=== PATIENT | female | born 1980 | race Caucasian/White ===

== ENCOUNTER 2020-02-19 09:09 | Outpatient (CLI) | payer OTHER, SELFPAY ==
--- NOTE | ~2020-02-19 | CT_ITS ---
EXAMINATION: CT abdomen pelvis w con INDICATION: Right lower quadrant pain TECHNIQUE: Computed tomographic images of the abdomen and pelvis were obtained after the administrati on of 100 cc of Omnipaque 350 intravenous contrast. The dose-length product (DLP) was 719.85 mGy-cm. Automated exposure control and iterative reconstruction technique were employed. COMPARISON: 09/18/2015 FINDINGS: Minimal dependent atelectasis is present in the lung bases. The heart size is normal. The g allbladder is surgically absent. The liver, spleen, pancreas, and adrenal glands are normal. Cysts of the kidneys measure up to No pathologically enlarged abdominal or pelvic lymph nodes are identified. There is no free intraperitoneal gas or evidence of bowel obstruction. The appendix is normal. Surgi alyssa clips are noted in the left adnexa. There is a small amount of fluid in the pelvis and right adne xa, likely physiologic. IMPRESSION: 1. No CT correlate for the patient's symptoms. Reviewed, dictated and finalized at location A.
[2020-02-19 09:32] LABS: Basophils Absolute Auto 0.1 K/mm3 (0.0-0.1); Basophils Percent Auto 0.5 % (0.2-1.2); Eosinophils Absolute Auto 0.1 K/mm3 (0-0.3); Hematocrit 45.4 % (37.0-47.0); Hemoglobin 14.8 g/dL (12.0-15.0); Immature Granulocyte Absolute 0.06 K/mm3 (0.00-0.031); Immature Granulocyte Percent A 0.6 % (0-0.5); Lymphocytes Absolute Auto 3.04 K/mm3 (0.9-3.2); Mean Corpuscular HGB Conc 32.6 g/dl (32-36); Mean Corpuscular Hemoglobin 31.4 pg (26-34); Mean Corpuscular Volume 96.4 fl (80-100); Mean Platelet Volume 9.3 fl (7.4-10.4); Monocytes Absolute Auto 0.6 K/mm3 (0.1-0.6); Monocytes Percent Auto 5.6 % (2.6-8.5); Neutrophils Absolute Auto 6.3 K/mm3 (1.3-6.7); Neutrophils Percent Auto 62.3 % (45.5-73.1); Platelet Count Result 280 k/mm3 (150-375); Red Blood Count 4.71 M/mm3 (4.2-5.4); Red Cell Distribution Width 13.1 % (11.5-14.5); White Blood Count 10.1 K/mm3 (4.5-10.0)
[2020-02-19 09:43] LABS: Blood Urea Nitrogen 10 mg/dL (7-17); Calcium 9.1 mg/dL (8.4-10.2); Carbon Dioxide 27 mmol/L (22-30); Chloride 104 mmol/L (98-107); Estimated Glomerular Filt Rate > 60; Glucose 97 mg/dL (65-105); Sodium 135 mmol/L (137-145)
== END 2020-02-19 09:10 | disposition home or self-care (01) ==
PROVIDERS: PCP Family Medicine; Visit Provider Nurse Practitioner Family
DX: R10.31 Right lower quadrant pain (principal)
CPT/HCPCS: 36415; 74177; 80048; 85025; Q9967

== ENCOUNTER 2020-03-16 12:41 | Outpatient (CLI) | payer OTHER, SELFPAY ==
--- NOTE | ~2020-03-16 | US_ITS ---
EXAMINATION: US pelvic complete w TV DATE: 03/16/2020 14:01 INDICATION: Enlarged uterus, vaginal bleeding, history of right salpingo-oophorectomy TECHNIQUE: Multiple transabdominal and endovaginal sonographic images of the pelvis were obtained. COMPARISON: None. FINDINGS: The uterus measures 8.4 x 4.4 x 5.2 cm. The endometrial complex measures 9 mm. The right ov ivory surgically absent. No right adnexal abnormality is seen. The left ovary measures 1.9 x 1.7 x 1.7 cm. There is normal vascular flow in the left ovary. There is no free fluid in the pelvis. IMPRESSION: 1. No sonographic correlate for the patient's symptoms. Reviewed, dictated and finalized at location A.
--- NOTE | ~2020-03-16 | MM_ITS ---
EXAMINATION: MM screening erendira BI w danilo HISTORY: Screening mammogram TECHNIQUE: Craniocaudal and mediolateral oblique 3-D tomosynthesis images were obtained and synthetic 2-D images were generated. CAD analysis was submitted and interpreted. COMPARISON: No prior mammogram is available for comparison at this institution. BREAST PARENCHYMAL COMPOSITION: There are scattered areas of fibroglandular density. FINDINGS: There is no evidence of suspicious mass, calcification, or architectural distortion to sugg est malignancy in either breast. There has been no suspicious interval change. IMPRESSION: 1. No mammographic evidence of malignancy. 2. Recommend routine screening mammography in one year. BI-RADS Category 1: Negative Reviewed, dictated and finalized at location A.
== END 2020-03-16 12:42 | disposition home or self-care (01) ==
PROVIDERS: PCP Family Medicine; Visit Provider Obstetrics & Gynecology
DX: Z12.31 Encounter for screening mammogram for malignant neoplasm of breast (principal); N85.2 Hypertrophy of uterus
CPT/HCPCS: 76830; 76856; 77063; 77067

== ENCOUNTER 2020-11-03 11:48 | Outpatient (NON) | payer OTHER, SELFPAY ==
[2020-11-03 23:31] LABS: SARS-CoV-2 RNA PCR Negative
== END 2020-11-03 11:49 ==
LOC: ANHCOVIDDT 11:49
PROVIDERS: PCP Family Medicine; Visit Provider Nurse Practitioner Family
DX: R19.7 Diarrhea, unspecified (principal); R09.81 Nasal congestion; Z20.822 Contact with and (suspected) exposure to COVID-19
CPT/HCPCS: C9803; U0003

== ENCOUNTER → 2020-12-08 11:15 | Outpatient (CLI) | payer OTHER, SELFPAY ==
[2020-12-08 14:41] LABS: Influenza Control Positive
[2020-12-08 22:34] LABS: SARS-CoV-2 RNA PCR Negative
== END ==
PROVIDERS: PCP Family Medicine; Visit Provider Nurse Practitioner Family
DX: Z20.822 Contact with and (suspected) exposure to COVID-19 (principal); R68.89 Other general symptoms and signs
CPT/HCPCS: 87804; C9803; U0003; U0005

== ENCOUNTER 2021-04-05 17:15 | Outpatient (RCR) | payer OTHER, SELFPAY ==
--- NOTE | 2021-03-11 11:26 | PTOPEVAL ---
Thank you for referring Becky Singleton to [facility].? The patient is scheduled to be seen for therapy?1 x/week for 8 weeks. Please review, sign, date and return this plan of care LINDA. I agree with and certify that the following plan of care is medically necessary. Referring Physician Date Attending Provider: Sheri Estrada, DESIGN CHIEF Diagnosis left hip pain Onset months Cause unknown Subjective Information She reports limitation with Query Text:As Reported By Patient/ walking or standing act. She Family has increased pain with prolonged sitting or lying to sleep. Unable to sleep on left side. She has deep hip pain with radiating pain into left upper leg when it hurts. She has increased pain with sitting in the car. She has some pain with walking backward. She does not perform a stretching or exercise program. 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 No pain changes with work until she sits. Previous Treatments Previous Treatments For This Problem no Pain Assessment Pain Scale Used Numeric (1 - 10) Self Report Pain Assessment Left Hip(s) Reported Pain Level 0 Pain Description Radiating,Sharp,Shooting Pain Radiation Left Leg Pain Frequency Chronic,Continuous Lowest Pain Intensity 0 Greatest Pain Intensity 9 Cervical and Lumbar ROM Lumbar ROM Lumbar Flexion Active Mid Negrete Query Text:Hands to: Lumbar Comments no pain with trunk motion, limited flex, 100% ext Lower Extremity Range of Motion General Lower Extremity Range of Motion Reason Not Measured WFL/Left,WFL/Right Lower Extremity Muscle Strength Testing General Lower Extremity Strength Gross Lower Extremity Strength decreased trunk stability in standing and sitting task Hip Strength Bilateral Hip Flexion Strength 5 Normal Hip Extension Strength 4 Good Hip Abduction Strength 3 Fair Knee Strength Bilateral Knee Flexion Strength 5 Normal Knee Extension Strength 5 Normal Ankle Strength Bilateral Ankle Dorsiflexion Strength 5 Normal Ankle Plantarflexion Strength 4 Good
--- NOTE | 2021-04-15 12:28 | PCPTNOTE ---
Patient called & cancelled scheduled appointment this date due to scheduling. She will call to reschedule.
--- NOTE | 2021-05-13 12:53 | PCPTNOTE ---
Patient did not show up for scheduled appointment this date. Will DC skilled therapy due to repeated No show/cancelled visits and length of last of therapy visit.
--- NOTE | 2021-05-13 12:53 | PCPTNOTE ---
Admitting Provider: Attending Provider: ARCHANA Swift Patient:Becyk Singleton Date of :1980 Discharge therapy note Patient has not returned for any further treatments since 04/05/2021, therefore she will be discharged at this time. She attended 4 therapy visits with 3 no show/cancelled visits. Patient?s initial visit was on 03/11/2021 10:15. The goals have been not met at this time due to limited therapy visits. Thank you for referring this patient to [facility]. Please review, sign, date and return this discharge summary LINDA. I have been updated about the patient's current status and I agree with discharge from the above service at this time. Referring Physician Date
== END 2021-05-20 14:46 | disposition home or self-care (01) ==
LOC: ANHPT 17:15
PROVIDERS: PCP Family Medicine; Visit Provider Nurse Practitioner Family
DX: M25.552 Pain in left hip (principal)
CPT/HCPCS: 97014; 97110; 97140; 97161; G0283

== ENCOUNTER 2021-04-15 15:09 | Outpatient (CLI) | payer OTHER, SELFPAY ==
--- NOTE | ~2021-04-15 | MM_ITS ---
EXAMINATION: MM screening erendira BI w danilo HISTORY: Screening mammogram, family history of breast cancer in her mother. TECHNIQUE: Craniocaudal and mediolateral oblique 3-D tomosynthesis images were obtained and synthetic 2-D images were generated. CAD analysis was submitted and interpreted. COMPARISON: 03/16/2020 BREAST PARENCHYMAL COMPOSITION: The breasts are almost entirely fatty. FINDINGS: There is no evidence of suspicious mass, calcification, or architectural distortion to sugg est malignancy in either breast. There has been no suspicious interval change. IMPRESSION: 1. No mammographic evidence of malignancy. 2. Recommend routine screening mammography in one year. BI-RADS Category 1: Negative Reviewed, dictated and finalized at location A.
== END 2021-04-15 15:10 | disposition home or self-care (01) ==
LOC: ANHIMG 15:12
PROVIDERS: PCP Family Medicine; Visit Provider Obstetrics & Gynecology
DX: Z12.31 Encounter for screening mammogram for malignant neoplasm of breast (principal)
CPT/HCPCS: 77063; 77067

== ENCOUNTER 2021-05-17 14:39 | Outpatient (CLI) | payer OTHER, SELFPAY ==
--- NOTE | ~2021-05-17 | US_ITS ---
EXAMINATION: US soft tissue UE LT EXAM DATE: 05/17/2021 15:10 INDICATION: M79.642 - Pain in left hand, mass. TECHNIQUE: Multiple grayscale and Doppler images of the dorsal left wrist region were obtained (by a technologist who performed the scan) and subsequently reviewed. There is no prior study for comparis on. FINDINGS: Scanning in the left hand area of concern posteriorly, near the 3rd and 4th metacarpal bases, demonst rates a complex cystic mass which is most likely a ganglion cyst. IMPRESSION: Complex cystic mass likely ganglion cyst. Reviewed, dictated and finalized at location A.
== END 2021-05-17 14:40 | disposition home or self-care (01) ==
PROVIDERS: PCP Family Medicine; Visit Provider Orthopaedic Surgery
DX: M79.642 Pain in left hand (principal)
CPT/HCPCS: 76882

== ENCOUNTER 2021-08-15 08:01 | Outpatient (CLI) | payer OTHER, SELFPAY ==
[2021-08-15 08:14] LABS: Basophils Absolute Auto 0.1 K/mm3 (0.0-0.1); Basophils Percent Auto 0.6 % (0.2-1.2); Eosinophils Absolute Auto 0.1 K/mm3 (0-0.3); Eosinophils Percent Auto 1.4 % (0-4.4); Hemoglobin 14.3 g/dL (12.0-15.0); Immature Granulocyte Absolute 0.04 K/mm3 (0.00-0.031); Immature Granulocyte Percent A 0.5 % (0-0.5); Lymphocytes Absolute Auto 3.26 K/mm3 (0.9-3.2); Lymphocytes Percent Auto 40.1 % (18.3-44.2); Mean Corpuscular HGB Conc 33.3 g/dl (32-36); Mean Corpuscular Volume 99.3 fl (80-100); Monocytes Absolute Auto 0.5 K/mm3 (0.1-0.6); Monocytes Percent Auto 6.5 % (2.6-8.5); Neutrophils Absolute Auto 4.1 K/mm3 (1.3-6.7); Neutrophils Percent Auto 50.9 % (45.5-73.1); Platelet Count Result 268 k/mm3 (150-375); Red Blood Count 4.33 M/mm3 (4.2-5.4); Red Cell Distribution Width 12.8 % (11.5-14.5); White Blood Count 8.1 K/mm3 (4.5-10.0)
--- NOTE | 2021-08-15 08:22 | ECG_ITS ---
Measurements Intervals [place] Rate: 52 P: 55 IL: 184 QRS: 82 QRSD: 97 T: 63 QT: 444 QTc: 416 Interpretive Statements SINUS BRADYCARDIA WITH MARKED SINUS ARRHYTHMIA BASELINE WANDER- I, II, AVR, AVL, AVF BORDERLINE ECG Electronically Signed On 08-15-2021 9:30:04 CDT by Donovan Borrego D.O.
[2021-08-15 08:53] LABS: Alanine Aminotransferase 22 U/L (4-35); Albumin Level 4.6 g/dL (3.5-5.1); Alkaline Phosphatase 55 U/L (38-126); Anion Gap 4 mmol/L (8-16); Aspartate Amino Transferase 23 U/L (14-36); Bilirubin,Total 0.4 mg/dL (0.2-1.3); Blood Urea Nitrogen 17 mg/dL (7-17); Calcium 9.3 mg/dL (8.4-10.2); Carbon Dioxide 29 mmol/L (22-30); Chloride 106 mmol/L (98-107); Cholesterol 160 mg/dL (0-200); Estimated Glomerular Filt Rate > 60; Glucose 99 mg/dL (65-110); HDL Direct 59 mg/dL; Sodium 139 mmol/L (137-145); Triglycerides 128 mg/dL (<150)
[2021-08-15 09:04] LABS: LDL Cholesterol Direct 68 mg/dL
== END 2021-08-15 08:02 | disposition home or self-care (01) ==
PROVIDERS: PCP Family Medicine; Visit Provider Nurse Practitioner Family
DX: Z13.220 Encounter for screening for lipoid disorders (principal); R07.9 Chest pain, unspecified; R00.2 Palpitations; Z13.29 Encounter for screening for other suspected endocrine disorder; K21.9 Gastro-esophageal reflux disease without esophagitis
CPT/HCPCS: 36415; 80053; 80061; 84443; 85025; 93005

== ENCOUNTER 2021-09-06 08:51 | Outpatient (CLI) | payer OTHER, MEDICAID, SELFPAY ==
--- NOTE | 2021-09-06 08:54 | EST_ITS ---
Patient Info Name: Becky Singleton Age: 40 years : 1980 Gender: Female Ht: 64 in Wt: 192 lbs BSA: 2.02 m2 HR: 59 bpm BP: 122 / 93 mmHg Heart Rhythm: Sinus Rhythm Exam Date: 09/06/2021 10:00 AM Exam Location: [facility] Stress Patient Status: Outpatient Admit Date: 09/06/2021 Staff Ordering Physician: Dede Valle NP Attending Provider: Dede Valle NP Exercise Technologist: Glenis Dennison CT Exercise Physician: Donovan Borrego DO Exam Type: CA stress test treadmill Study Info Indications R00.2 - Palpitations R07.9 - Chest pain, unspecified An exercise stress test was performed. Summary 1. 1. Negative Alexis exercise stress test for ischemic ST changes by ECG criteria. 2. 2. Good functional capacity, achieving 10 METs of workload. 3. 3. Appropriate HR response to exercise. 4. 4. Appropriate HR recovery at 1 minute post exercise. 5. 5. No imaging with stress testing. 6. 6. Patient informed of the above results. Protocol: Alexis Stress ECG Details Stage: REST Duration (min): 1 min : 6 sec Speed (mph): 0.0 Grade (%): 0 HR (bpm): 59 SBP (mmHg): 122 DBP (mmHg): 93 METS: --- Stage: STAGE 1 Duration (min): 1 min : 0 sec Speed (mph): 1.7 Grade (%): 10 HR (bpm): 98 SBP (mmHg): 122 DBP (mmHg): 93 METS: --- Stage: STAGE 1 Duration (min): 2 min : 0 sec Speed (mph): 1.7 Grade (%): 10 HR (bpm): 105 SBP (mmHg): 122 DBP (mmHg): 93 METS: --- Stage: STAGE 1 Duration (min): 3 min : 0 sec Speed (mph): 1.7 Grade (%): 10 HR (bpm): 103 SBP (mmHg): 137 DBP (mmHg): 72 METS: --- Stage: STAGE 2 Duration (min): 1 min : 0 sec Speed (mph): 2.5 Grade (%): 12 HR (bpm): 118 SBP (mmHg): 137 DBP (mmHg): 72 METS: --- Stage: STAGE 2 Duration (min): 2 min : 0 sec Speed (mph): 2.5 Grade (%): 12 HR (bpm): 131 SBP (mmHg): 155 DBP (mmHg): 72 METS: --- Stage: STAGE 2 Duration (min): 3 min : 0 sec Speed (mph): 2.5 Grade (%): 12 HR (bpm): 138 SBP (mmHg): 155 DBP (mmHg): 72 METS: --- Stage: STAGE 3 Duration (min): 1 min : 0 sec Speed (mph): 3.4 Grade (%): 14 HR (bpm): 157 SBP (mmHg): 173 DBP (mmHg): 73 METS: --- Stage: STAGE 3 Duration (min): 2 min : 0 sec Speed (mph): 3.4 Grade (%): 14 HR (bpm): 168 SBP (mmHg): 173 DBP (mmHg): 73 METS: --- Stage: STAGE 3 Duration (min): 2 min : 58 sec Speed (mph): 3.4 Grade (%): 14 HR (bpm): 170 SBP (mmHg): 169 DBP (mmHg): 80 METS: --- Stage: RECOVERY Duration (min): 0 min : 1 sec Speed (mph): 1.5 Grade (%): 0 HR (bpm): 170 SBP (mmHg): 169 DBP (mmHg): 80 METS: --- Stage: RECOVERY Duration (min): 1 min : 1 sec Speed (mph): 0.0 Grade (%): 0 HR (bpm): 135 SBP (mmHg): 169 DBP (mmHg): 80 METS: ---
--- NOTE | 2021-09-08 22:10 | WPDHOLTEREM ---
Holter/Event Monitor Holter/Event Monitor Date of procedure: 09/08/21 Holter/Event Procedure: 48 Hr Holter Monitor Diagnosis: Palpitations Indications: 40-year-old female with palpitations Image/Tracing Quality: Good Finding: The patient was monitored for 48 hours. The underlying rhythm was sinus with a minimum heart rate of 42 beats per minute, average heart rate of 78 beats per minute and maximum heart rate 129 beats per minute. No PVCs were seen. There were 109 APCs noted with 3 atrial couplets. No atrial fibrillation, SVT, ventricular tachycardia, pauses or heart block were recorded. No diary was submitted. . Conclusion: 1. Unremarkable 48 hour Holter monitor. 2. Rare APCs and atrial couplets noted 3. No symptoms recorded
== END 2021-09-06 08:52 | disposition home or self-care (01) ==
PROVIDERS: PCP Family Medicine; Visit Provider Nurse Practitioner Family
DX: R07.89 Other chest pain (principal); R00.2 Palpitations
CPT/HCPCS: 93017; 93225; 93226

== ENCOUNTER → 2021-10-20 02:59 | Outpatient (CLI) | payer OTHER, MEDICAID, SELFPAY ==
[2021-10-20 19:47] LABS: SARS-CoV-2 RNA PCR Negative
== END ==
PROVIDERS: PCP Family Medicine; Visit Provider Physician Assistant Medical
DX: R68.89 Other general symptoms and signs (principal); Z20.822 Contact with and (suspected) exposure to COVID-19
CPT/HCPCS: C9803; U0003; U0005

== ENCOUNTER 2022-03-23 22:26 | Emergency (ER) | payer OTHER, MEDICAID, SELFPAY ==
--- NOTE | ~2022-03-23 | CT_ITS ---
EXAMINATION: CT soft tissue neck w con DATE: 03/24/2022 01:19 INDICATION: Right submandibular gland swelling. TECHNIQUE: Computed tomography (CT) of the neck was performed with 75 mL Omnipaque 300 intravenous co ntrast. Automated exposure control and iterative reconstruction technique were employed. The dose-rob gth product was 591.39 mGy-cm. COMPARISON: None FINDINGS: The orbits are normal. There is fat stranding in right lower face adjacent to the mandible and around the right submandibular gland. No sialolith. There is a mildly enlarged high right interna l jugular chain lymph node. There is mild mucosal thickening in the ethmoid sinuses. The mastoid air cells are normal. There are carious lesions of teeth 15, 19, and 30. IMPRESSION: 1. Inflammation in right lower face adjacent to the mandible and around the right submandibular gland . 2. Dental disease. 3. Mildly enlarged right high internal jugular chain lymph node, likely reactive. Reviewed, dictated and finalized at location A. IMPRESSION: 1. Inflammation in right lower face adjacent to the mandible and around the rig ht submandibular gland. 2. Dental disease. 3. Mildly enlarged right high internal jugular chain lymph node, likely reactiv e.
[2022-03-23 22:30] VITALS: BP 154/98; PULSE 100; RESP 18; TEMP 36.8; O2SAT 99
--- NOTE | 2022-03-24 00:45 | ED.DENTAL ---
HPI - Dental/Oral General Chief complaint: Dental/Oral Stated complaint: toothache Time Seen by Provider: 03/23/22 23:19 History of Present Illness HPI Narrative: Patient is a 41-year-old female who presents ER with concerns for dental pain. Reports she has some discomfort in the right side of her mouth under her tongue that goes into her neck and to her ear. No difficulty breathing or swallowing. She has been taking amoxicillin 875 mg for the last 2 days. She previously had dental infection due to a fractured tooth. No fevers or chills or sweats. Unsure if symptoms are worsened by eating or drinking. Related Data Home Medications Medication Instructions Recorded Confirmed acetaminophen 325 mg capsule 325 mg PO Q6H PRN 03/17/21 01/04/22 (Tylenol) ibuprofen 200 mg capsule 200 mg PO Q6H PRN 03/17/21 01/04/22 multivitamin (Daily Multi-Vitamin) 1 tablet PO DAILY 03/17/21 01/04/22 Allergies Allergy/AdvReac Type Severity Reaction Status Date / Time No Known Allergies Allergy Mild Verified 01/04/22 08:16 Review of Systems Review of Systems: All systems reviewed & are unremarkable except as noted in HPI and below Constitutional: Constitutional: Denies chills, Denies fatigue and Denies fever(s) ENT: Denies dysphagia Comments: No dental pain. Swelling under the right tongue and right submandibular swelling. Cardiovascular: Cardiovascular: Denies chest pain, Denies rapid heart rate and Denies radiating jaw, neck or arm pain Respiratory: Respiratory: Denies cough and Denies dyspnea PMFSH Past Medical History Medical History ADD (attention deficit disorder) Alcohol abuse COVID-19 Ganglion, left wrist Left carpal tunnel syndrome Tobacco abuse Surgical History Surgical History History of cholecystectomy Family History Family History Father Neurological complaint Grandparent Family history of coronary artery disease Mother Breast cancer Sibling Blood clot in vein COVID-19 Other Family history of arthritis Family history of malignant neoplasm Social History Social History Tobacco type: cigarettes Second hand tobacco smoke exposure: No Alcohol intake: current Substance use: never Substance use type: does not use 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 HEAD: Normocephalic, atraumatic. EYES: PERRL and EOMI. ENT: Mucous membranes moist. Normal-appearing posterior oropharynx without tonsillar hypertrophy or uvular edema. Uvula is midline. There is some edema to the sublingual or salivary duct without abscess or drainage. Submandibular gland on the right side of the jaw is also swollen and tender. NECK: Supple. CHEST: Clear to auscultation. No respiratory distress. HEART: Regular rate and rhythm. Normal peripheral pulses. EXTREMITIES: Normal range of motion. No edema. NEURO: Alert and oriented x3. PSYCH: Normal mood and affect. Course Vital Signs Vital signs: Vital Signs Temperature 98.2 F 03/23/22 22:30 Pulse Rate 100 03/23/22 22:30 Respiratory Rate 18 03/23/22 22:30 Blood Pressure 154/98 H 03/23/22 22:30 Pulse Oximetry 99 03/23/22 22:30 Oxygen Delivery Room Air 03/23/22 22:30 Temperature 98.2 F 03/23/22 22:30 Pulse Rate 82 03/24/22 02:26 Respiratory Rate 18 03/24/22 02:26 Blood Pressure 128/81 03/24/22 02:26 Pulse Oximetry 98 03/24/22 02:26 Oxygen Delivery Room Air 03/23/22 22:30 MDM - Dental/Oral Imaging Data Radiologist's impression: CT neck: Inflammatory changes at the right submandibular space
[2022-03-24] MEDS: MORPHINE SULFATE (*CRX) 4 MG/ML INJ IV PUSH (02:21)
[2022-03-24 02:26] VITALS: BP 128/81; PULSE 82; RESP 18; O2SAT 98
[2022-03-24 03:16] VITALS: BP 124/75; PULSE 78; RESP 18; O2SAT 99
== END 2022-03-24 03:17 | disposition home or self-care (01) ==
PROVIDERS: Emergency Provider Emergency Medicine; PCP Family Medicine
DX: K04.7 Periapical abscess without sinus (principal)
CPT/HCPCS: 70491; 96365; 96375; 99284; J0131; J2270; Q9967

== ENCOUNTER 2022-06-02 13:53 | Outpatient (CLI) | payer OTHER, MEDICAID, SELFPAY ==
[2022-06-02 14:33] LABS: Hematocrit 41.9 % (37.0-47.0); Hemoglobin 13.6 g/dL (12.0-15.0); Mean Corpuscular HGB Conc 32.5 g/dl (32-36); Mean Corpuscular Hemoglobin 31.2 pg (26-34); Mean Corpuscular Volume 96.1 fl (80-100); Mean Platelet Volume 9.4 fl (7.4-10.4); Platelet Count Result 266 k/mm3 (150-375); Red Blood Count 4.36 M/mm3 (4.2-5.4); White Blood Count 9.8 K/mm3 (4.5-10.0)
[2022-06-02 14:46] LABS: Alanine Aminotransferase 51 U/L (6-35); Albumin Level 4.2 g/dL (3.5-5.1); Alkaline Phosphatase 60 U/L (38-126); Anion Gap 9 mmol/L (8-16); Aspartate Amino Transferase 37 U/L (14-36); Bilirubin,Total 0.4 mg/dL (0.2-1.3); Blood Urea Nitrogen 15 mg/dL (7-17); Calcium 9.1 mg/dL (8.4-10.2); Carbon Dioxide 25 mmol/L (22-30); Chloride 103 mmol/L (98-107); Estimated Glomerular Filt Rate > 60; Glucose 97 mg/dL (65-110); Sodium 137 mmol/L (137-145)
[2022-06-05 13:54] LABS: FSH 74.9 mIU/mL (***)
[2022-06-06 11:52] LABS: Vitamin D 1,25 (OH)2 Total 52 pg/mL (18-72); Vitamin D2 1,25 (OH)2 <8 pg/mL; Vitamin D3 1,25 (OH)2 52 pg/mL
[2022-06-07 12:17] LABS: Testosterone Total 26 ng/dL (2-45)
== END 2022-06-02 13:54 | disposition home or self-care (01) ==
LOC: ANHLAB 13:54
PROVIDERS: PCP Family Medicine; Visit Provider Obstetrics & Gynecology
DX: N92.6 Irregular menstruation, unspecified (principal)
CPT/HCPCS: 36415; 80053; 82607; 82652; 83001; 84403; 85027

== ENCOUNTER 2022-06-08 15:13 | Outpatient (CLI) | payer OTHER, MEDICAID, SELFPAY ==
--- NOTE | ~2022-06-08 | MM_ITS ---
EXAMINATION: MM screening erendira BI w danilo HISTORY: Screening mammogram, family history of breast cancer in her mother. TECHNIQUE: Craniocaudal and mediolateral oblique 3-D tomosynthesis images were obtained and synthetic 2-D images were generated. CAD analysis was submitted and interpreted. COMPARISON: 04/15/2021, 03/16/2020 BREAST PARENCHYMAL COMPOSITION: The breasts are almost entirely fatty. FINDINGS: RIGHT BREAST: There is a low-density mass in the posterior third of the breast in line with the nippl e axis. LEFT BREAST: There is no suspicious mass, calcification, or architectural distortion to suggest malig kavon. There has been no significant interval change. IMPRESSION: 1. Right breast mass. 2. Additional mammographic views and possible breast ultrasound are recommended. BI-RADS Category 0: Incomplete: Needs additional imaging evaluation. Reviewed, dictated and finalized at location A. IMPRESSION: 1. Right breast mass. 2. Additional mammographic views and possible breast ultrasound are recommended . BI-RADS Category 0: Incomplete: Needs additional imaging evaluation.
== END 2022-06-08 15:14 | disposition home or self-care (01) ==
PROVIDERS: PCP Family Medicine; Visit Provider Obstetrics & Gynecology
DX: Z12.31 Encounter for screening mammogram for malignant neoplasm of breast (principal); R92.8 Other abnormal and inconclusive findings on diagnostic imaging of breast
CPT/HCPCS: 77063; 77067

== ENCOUNTER 2022-06-15 13:14 | Outpatient (CLI) | payer OTHER, MEDICAID, SELFPAY ==
--- NOTE | ~2022-06-15 | MMUS_ITS ---
EXAMINATION: MM diagnostic erendira RT w danilo, US breast RT limited HISTORY: Small low-density mass in posterior third of right breast in line with the nipple axis TECHNIQUE: Additional 3-D tomosynthesis images of the right breast were performed and synthetic 2-D i mages were generated. CAD analysis was submitted and interpreted. High resolution targeted central ri t breast ultrasound was performed. COMPARISON: 06/08/2022 bilateral screening mammogram 04/15/2021 bilateral screening mammogram FINDINGS: MAMMOGRAPHIC FINDINGS: There is an approximately 3.7 mm new opacity in the central left breast approximately 5.7 cm deep to the nipple on CC projection, approximately 6.8 cm deep to the nipple on spot ML view.. ULTRASOUND: 12:00 3 cm from nipple: There is a parallel circumscribed 2.7 x 1.5 x 2.9 mm sonolucent area without internal vascularity or posterior shadowing, most likely a benign small cyst IMPRESSION: 1. Probable benign approximately 3 mm cyst in the central right breast 2. 6 month diagnostic right mammogram follow-up is recommended, with ultrasound if required BI-RADS category 3, probably benign findings. Reviewed, dictated and finalized at location A. IMPRESSION: 1. Probable benign approximately 3 mm cyst in the central right breast 2. 6 month diagnostic right mammogram follow-up is recommended, with ultrasound if required BI-RADS category 3, probably benign findings.
== END 2022-06-15 13:15 | disposition home or self-care (01) ==
LOC: ANHIMG 13:16
PROVIDERS: PCP Family Medicine; Visit Provider Obstetrics & Gynecology
DX: N63.10 Unspecified lump in the right breast, unspecified quadrant (principal); R92.8 Other abnormal and inconclusive findings on diagnostic imaging of breast
CPT/HCPCS: 76642; 77061; 77065; G0279

== ENCOUNTER 2022-12-05 13:03 | Outpatient (CLI) | payer OTHER, MEDICAID, SELFPAY ==
--- NOTE | ~2022-12-05 | MMUS_ITS ---
EXAMINATION: MM diagnostic erendira RT w danilo, US breast RT limited HISTORY: Probable benign approximately 3 mm cyst in central right breast was reported on 06/15/2022 Li mikad right breast ultrasound TECHNIQUE: ML, MLO and CC 3-D tomosynthesis images of the right breast were performed and synthetic 2 -D images were generated. CAD analysis was submitted and interpreted. High resolution targeted right 12:00 breast ultrasound was performed. COMPARISON: 06/15/2022 diagnostic right mammogram and limited right breast ultrasound 06/08/2022, 04/15/2021 bilateral screening mammogram examinations BREAST PARENCHYMAL COMPOSITION: The breasts are almost entirely fatty. FINDINGS: MAMMOGRAPHIC FINDINGS: No suspicious mass or architectural distortion, malignant calcification, skin thickening or retractio n or significant new or developing density is detected. ULTRASOUND: No suspicious mass or shadowing, cyst or other significant sonographic finding is noted at 12:00. IMPRESSION: 1. No mammographic evidence of malignancy 2. Routine annual mammographic screening is recommended BI-RADS Category 1: Negative Reviewed, dictated and finalized at location A. [employer] GROUNDSK[employer]PER IMPRESSION: 1. No mammographic evidence of malignancy 2. Routine annual mammographic screening is recommended BI-RADS Category 1: Negative
== END 2022-12-05 13:04 | disposition home or self-care (01) ==
PROVIDERS: PCP Family Medicine; Visit Provider Obstetrics & Gynecology
DX: N60.01 Solitary cyst of right breast (principal)
CPT/HCPCS: 76642; 77061; 77065; G0279

== ENCOUNTER 2023-04-19 11:44 | Emergency (ER) | payer OTHER, MEDICAID, SELFPAY ==
--- NOTE | 2023-04-19 11:46 | ED.EYEPROB ---
HPI - Eye Problem General Chief complaint: Eye Problems Stated complaint: Eye problems Time Seen by Provider: 04/19/23 11:45 Source: patient Mode of arrival: ambulatory Limitations: no limitations History of Present Illness HPI Narrative: Becky is a 42-year-old female patient presenting to the clinic today with complaints of right eye injury. She reports that her boxer stepped on her face this morning and injured her right eye. States she has some bleeding under the cornea, pain, and her eye is watering. Denies any visual changes. Visual acuity obtained Related Data Allergies Allergy/AdvReac Type Severity Reaction Status Date / Time No Known Allergies Allergy Mild Verified 06/02/22 09:52 Review of Systems Review of Systems: Pertinent positives per HPI. Patient denies any fever, chills, rash, headache, visual changes, dizziness, cough, runny nose, sore throat, shortness of breath, chest pain, palpitations, nausea, vomiting, diarrhea, constipation, abdominal pain, or any urinary issues. [facility] Past Medical History Medical History ADD (attention deficit disorder) Alcohol abuse COVID-19 Cyst of right breast Ganglion, left wrist Left carpal tunnel syndrome Screening mammogram, encounter for Tobacco abuse Surgical History Surgical History History of cholecystectomy (~2003) History of exploratory laparotomy (~2003) exploratory lap w/RSO by Harley--rt ovarian mass History of right salpingo-oophorectomy (~2003) History of tubal ligation (05/21/12) unilateral left tubal ligation Family History Family History Father Neurological complaint Grandparent Family history of coronary artery disease Mother Breast cancer metastatic breast cancer which spread to skull/neck/hips/ribs Sibling Blood clot in vein COVID-19 Other Family history of arthritis Family history of malignant neoplasm Social History Social History Smoking packs per day: 0.5 Smoking cigarettes per day: 10.0 Smoking status: Former smoker Tobacco type: cigarettes Second hand tobacco smoke exposure: No Alcohol intake: current Drinks per week: 1 Substance use: never Substance use type: does not use Living arrangements: other Additional living arrangements comments: Occupation/Education: occupation Additional occupation/education comments: [employer] education-[place] [employer] Gender identity (if verbalized by the patient): Female Sexual Orientation (if Verbalized by the Patient): Straight or Heterosexual Comments At the time of my signature, I reviewed and agree with the nursing past medical, surgical, social, and family history. There is no relevant family history pertinent to the patient complaint. Exam Narrative: General: Well-developed, well nourished, in no apparent distress Head: Normocephalic, atraumatic Eyes: Pupils equally round and reactive to light bilaterally, EOM intact, left sclera and conjunctive clear, right sclera injected with subconjunctival hemorrhage to the right upper lateral sclera, watery discharge, lids normal, Wood's lamp exam performed and a small corneal abrasion is noted over the right iris at 11:00. No Shy sign. Ears: TMs intact and clear, ear canals clear, no drainage, grossly hearing normal. Nose: Nares patent, no discharge, no inflammation, no sinus tenderness. Mouth: Oropharynx without lesions or masses, good dentition, MMM. Neck: Supple, trachea midline, no enlargement of anterior or posterior cervical nodes, no thyroid masses or goiter palpable. Cardio: Regular rate and rhythm, s1 and s2 normal, no murmur appreciated. Resp: Clear to auscultation bilaterally anteriorly and post
[2023-04-19 11:55] VITALS: BP 131/71; PULSE 70; RESP 16; TEMP 36.9; O2SAT 99
== END 2023-04-19 12:20 | disposition home or self-care (01) ==
LOC: EXPCOLL 11:49
PROVIDERS: Emergency Provider Nurse Practitioner Family; PCP Family Medicine
DX: S05.01XA Injury of conjunctiva and corneal abrasion without foreign body, right eye, initial encounter (principal); W54.8XXA Other contact with dog, initial encounter; H11.31 Conjunctival hemorrhage, right eye; Z87.891 Personal history of nicotine dependence; Z86.16 Personal history of COVID-19
CPT/HCPCS: 99213; A9270; G0463

== ENCOUNTER 2023-08-25 07:26 | Outpatient (CLI) | payer OTHER, MEDICAID, SELFPAY ==
[2023-08-25 07:51] LABS: Hematocrit 44.3 % (37.0-47.0); Hemoglobin 14.5 g/dL (12.0-15.0); Mean Corpuscular HGB Conc 32.7 g/dl (32-36); Mean Corpuscular Hemoglobin 30.9 pg (26-34); Mean Corpuscular Volume 94.5 fl (80-100); Mean Platelet Volume 9.4 fl (7.4-10.4); Platelet Count Result 295 k/mm3 (150-375); Red Blood Count 4.69 M/mm3 (4.2-5.4); White Blood Count 8.5 K/mm3 (4.5-10.0)
[2023-08-25 08:05] LABS: Alanine Aminotransferase 24 U/L (6-35); Albumin Level 4.3 g/dL (3.5-5.1); Alkaline Phosphatase 62 U/L (38-126); Anion Gap 6 mmol/L (8-16); Aspartate Amino Transferase 23 U/L (14-36); Bilirubin,Total 0.5 mg/dL (0.2-1.3); Blood Urea Nitrogen 19 mg/dL (7-17); Calcium 9.6 mg/dL (8.4-10.2); Carbon Dioxide 25 mmol/L (22-30); Chloride 106 mmol/L (98-107); Cholesterol 179 mg/dL (0-200); Estimated Glomerular Filt Rate > 60; Glucose 100 mg/dL (65-110); HDL Direct 60 mg/dL; Potassium 4.5 mmol/L (3.4-5.0); Sodium 137 mmol/L (137-145); Triglycerides 124 mg/dL (<150)
[2023-08-25 08:16] LABS: LDL Cholesterol Direct 77 mg/dL
[2023-08-28 12:00] LABS: Testosterone Total 23 ng/dL (2-45)
[2023-08-29 06:06] LABS: FSH 98.7 mIU/mL (***); LH 63.5 mIU/mL (***)
[2023-09-01 22:02] LABS: Estrogen 78 pg/mL
== END 2023-08-25 07:27 | disposition home or self-care (01) ==
LOC: ANHLAB 07:28
PROVIDERS: PCP Family Medicine; Visit Provider Nurse Practitioner Family
DX: N92.6 Irregular menstruation, unspecified (principal); R74.8 Abnormal levels of other serum enzymes; Z13.220 Encounter for screening for lipoid disorders; Z13.29 Encounter for screening for other suspected endocrine disorder; Z13.1 Encounter for screening for diabetes mellitus; Z72.0 Tobacco use
CPT/HCPCS: 36415; 80053; 80061; 82672; 83001; 83002; 84403; 84443; 85027

== ENCOUNTER 2023-11-01 13:49 | Outpatient (CLI) | payer OTHER, MEDICAID, SELFPAY ==
--- NOTE | ~2023-11-01 | MM_ITS ---
EXAMINATION: MM screening erendira BI w danilo HISTORY: Screening mammogram, family history of breast cancer in her mother. TECHNIQUE: Craniocaudal and mediolateral oblique 3-D tomosynthesis images were obtained and synthetic 2-D images were generated. CAD analysis was submitted and interpreted. COMPARISON: 12/05/2022, 06/15/2022, 06/08/2022, 04/15/2021 BREAST PARENCHYMAL COMPOSITION: The breasts are almost entirely fatty. FINDINGS: No suspicious mass, calcification, or architectural distortion are identified in either catal[place] ast to suggest malignancy. There has been no suspicious interval change. IMPRESSION: 1. No mammographic evidence of malignancy. 2. Recommend routine screening mammography in one year. BI-RADS Category 1: Negative Reviewed, dictated and finalized at location A. OGRAPHIC COURT REPORTER
== END 2023-11-01 13:50 | disposition home or self-care (01) ==
PROVIDERS: PCP Family Medicine; Visit Provider Student in an Organized Health Care Education/Training Program
DX: Z12.31 Encounter for screening mammogram for malignant neoplasm of breast (principal)
CPT/HCPCS: 77063; 77067

== ENCOUNTER 2024-01-16 13:46 | Outpatient (CLI) | payer OTHER, BC, SELFPAY ==
--- NOTE | ~2024-01-16 | US_ITS ---
EXAMINATION: US pelvic complete w TV DATE: 01/16/2024 15:06 INDICATION: Abnormal uterine bleeding, history of right oophorectomy TECHNIQUE: Multiple transabdominal and endovaginal sonographic images of the pelvis were obtained. COMPARISON: 03/16/2020 FINDINGS: The uterus measures 6.8 x 3.6 x 3.9 cm. The endometrial complex measures 3 mm. The right ov ivory is surgically absent per patient history. The left ovary measures 1.5 x 1.3 x 0.7 cm. There is no rmal vascular flow in the left ovary. There is no free fluid in the pelvis. IMPRESSION: 1. No sonographic correlate for the patient's symptoms. Reviewed, dictated and finalized at location F.
== END 2024-01-16 13:47 | disposition home or self-care (01) ==
LOC: ANHIMG 13:50
PROVIDERS: PCP Family Medicine; Visit Provider Student in an Organized Health Care Education/Training Program
DX: N93.9 Abnormal uterine and vaginal bleeding, unspecified (principal)
CPT/HCPCS: 76830; 76856

== ENCOUNTER 2025-05-07 21:15 | Emergency (ER) | payer OTHER, SELFPAY ==
--- NOTE | ~2025-05-07 | XR_ITS ---
XR chest 2V Ordering provider: Syed Tom MD History: 44 years Female with . CHEST AND BACK PAIN . Comparison: August 31, 2011 FINDINGS: MEDIASTINUM: The cardiac silhouette is not enlarged. LUNGS: No infiltrates, effusions or pneumothorax. OTHER: No free air under the diaphragm. IMPRESSION: No acute cardiopulmonary pathology. Reviewed, dictated and finalized at location A.
--- NOTE | 2025-05-07 21:17 | ECG_ITS ---
Test Date: 2025-05-07 21:22:46 Measurements Intervals [place] Rate: 93 P: 26 CA: 182 QRS: 46 QRSD: 105 T: 13 QT: 362 QTc: 451 Interpretive Statements SINUS RHYTHM POSSIBLE INFERIOR MYOCARDIAL INFARCTION , PROBABLY OLD [30 ms Q WAVE IN II/aVF] No previous ECG available for comparison Electronically Signed On 05-08-2025 07:08:21 CDT by Anatoly Caballero M.D.
--- OUTSIDE RECORDS SUMMARY | 2025-05-07 21:17 | XMS_ITS | Referral Summary ---
Author Organization [facility] Address [address] [place] [id number] Care Team Providers Care Prec[employer] Captain Name Role Phone Tevin Richards MD Unavailable [phone] Senia Garcia MD Unavailable [phone] Jarad Perez MD Primary Care Provider [phone] Allergies No known active allergies Medications No known medications Active Problems No known active problems Social History Tobacco Use Types Packs/Day Years Used Date Smoking Tobacco: Every Day Cigarettes Tobacco Cessation:Ready to Q uit: Not Asked; Counseling Given: Not Answered AUDIT-C Answer Date Recorded Frequency of Alcohol Consumption Not on file 10/17/2023 Q2: How many drinks containi ng alcohol do you have on a typical day when you are drinking? 1 or 2 10/17/2023 Q3: How often do you have si x or more drinks on one occasion? Less than monthly 10/17/2023 Comments No Sex and Gender Information Value Date Recorded Sex Assigned at Not on file Legal Sex Female 7:59 AM CLIENT CARE SPECIALIST Gender Identity Not on file Sexual Orientation Not on file Last Filed Vital Signs Vital Sign Reading Time Taken Comments Blood Pressure 146/84 05/26/2024 12:10 PM CDT Pulse 72 05/26/2024 12:10 PM CDT Temperature 37.1 C (98.7 F) 05/26/2024 12:10 PM CDT Respiratory Rate 18 10/17/2023 1:01 PM CLIENT CARE SPECIALIST Oxygen Saturation 99% 05/26/2024 12:10 PM CDT Inhaled Oxygen Concentration - - Weight 104.3 kg (230 lb) 05/26/2024 12:10 PM CDT Height 162.6 cm (5' 4) 05/26/2024 12:10 PM CDT Body Mass Index 39.48 05/26/2024 12:10 PM CDT Plan of Treatment Not on file Procedures Procedure Name Priority Date/Time Associated Diagnosis Comments SCREENING MAMMOGRAM BILATERAL W CHAPIN Schedule Routine, Read Routine (OP Routine) 12/02/2024 4:11 PM CLIENT CARE SPECIALIST Screening mammogram, encounter for from Last 3 Months or Most Recently Relevant to Health Maintenance Results * Screening Mammogram Bilateral W Chapin (12/02/2024 4:11 PM CLIENT CARE SPECIALIST) Anatomical Region Laterality Modality Breast Bilateral Mammography Impressions 12/05/2024 12:59 PM CLIENT CARE SPECIALIST BI-RADS ATLAS category (overall): 1 - Negative There is no mammographic evidence of malignancy. A 1 year screening mammogram is recommended. The patient has been or will be contacted. We recommend annual screening mammography for women at average risk of breast cancer beginning at age 40, based on guidelines of the [employer] [employer] (ACR Practice Parameter for the Performance of Screening and Diagnostic Mammography) and [place] [employer]. For women with and elevated risk of breast cancer, please refer to the ACR Practice Parameter for specific screening recommendations. The patient will be entered into a reminder system with a target due date of 1 year for her next screening exam. Narrative 12/05/2024 12:59 PM CLIENT CARE SPECIALIST Screening Mammogram Bilateral W Chapin: 12/02/24 The study was acquired using full field digital technology and interpreted from soft copy. 2D digital mammographic views, as well as 3D digital tomosynthesis were performed in the CC and MLO projections. This study was resulted using Computer-Aided Detection (CAD). CLINICAL: Screening mammogram, encounter for. No relevant medical history has been documented for this patient. History of breast cancer in Mother. COMPARISONS: 11/01/2023 Breast Imaging Screening Outside Reference 12/05/2022 Breast Imaging US Outside Reference 12/05/2022 Breast Imaging Diagnostic Outside Reference 06/15/2022 Breast Imaging US Outside Reference 06/15/2022 Breast Imaging Diagnostic Outside Reference 06/08/2022 Breast Imaging Screening Outside Reference 04/15/2021 Breast Imaging Screening Outside Reference 03/16/2020 Breast Imaging Screening Outside Reference BREAST TISSUE: The breasts are almost entirely fatty. FINDINGS: No suspicious masses, suspicious calcifications, or other suspicious findings are seen within either breast. There has been no suspicious change. us Self Screening Mammogram IMG MAMMO PROCEDURES Fi nal Result from Last 3 Months or Most Recently Relevant to Health Maintenance Insurance [facility] Care Teams Precinct Police Captain Relationship Specialty Start Date End Date Jarad Perez MD [address] [place] [address] PCP - General Family Medicine 10/17/23 Tevin Richards MD [address] [place] [address] Consulting Physician Obstetrics and Gynecology 08/30/23 JoseSenia allen MD [address] [place] [address] Surgeon Breast Surgery 08/30/23
--- OUTSIDE RECORDS SUMMARY | 2025-05-07 21:17 | XMS_ITS | Clinical Summary ---
Author Organization [facility] Address [address] [place] [id number] Care Team Providers Care Transition Advisor Name Role Phone Tevin Richards MD Unavailable [phone] MysticSenia allen MD Unavailable [phone] Jarad Perez MD Primary Care Provider [phone] Allergies No known active allergies Medications No known medications Active Problems No known active problems Surgical History Surgery Date Site/Laterality Comments CHOLECYSTECTOMY 10/29/2003 - 11/28/2003 OOPHORECTOMY 10/29/2003 - 11/28/2003 Right TUBAL LIGATION 05/29/2012 - 06/28/2012 TUBAL LIGATION fallopian tube removal 10/2003 Medical History Medical History Date Comments Anxiety Bronchitis Depression Family History Medical History Relation Name Comments Heart attack Maternal Grandmother Breast cancer Mother 3 times Relation Name Status Comments Maternal Grandmother Mother Social History Tobacco Use Types Packs/Day Years [...] on file Legal Sex Female 7:59 AM VP SCIENTIFIC Gender Identity Not on file Sexual Orientation Not on file Obstetrics History Para Term AB IAB SAB Ectopic Multiple Livin g Live Births 3 3 3 Date Outcome GA Total Labor Labor/2nd/3rd Weight Sex Type Anes PTL Shereen A1 A5 Name Clin Term Term Term Last Filed Vital Signs Vital Sign Reading Time Taken Comments Blood Pressure 146/84 05/26/2024 12:10 PM CDT Pulse 72 05/26/2024 12:10 PM CDT Temperature 37.1 C (98.7 F) 05/26/2024 12:10 PM CDT Respiratory Rate 18 10/17/2023 1:01 PM VP SCIENTIFIC Oxygen Saturation 99% 05/26/2024 12:10 PM CDT Inhaled Oxygen Concentration - - Weight 104.3 kg (230 lb) 05/26/2024 12:10 PM CDT Height 162.6 cm (5' 4) 05/26/2024 12:10 PM CDT Body Mass Index 39.48 05/26/2024 12:10 PM CDT Plan of Treatment Health Maintenance Due Date Last Done Comments Cervical Cancer Screening 1980 Depression Screening 1980 Hepatitis C Screening 1980 DTaP/Tdap/Td Vaccine (1 - Tdap) 01/01/1992 Varicella Vaccines (1 of 2 - 13+ 2-dose series) 1993 Hepatitis B Screening 1998 Regular Well Visit/Exam 18-64 1998 Pneumococcal vaccine <65 (1 of 2 - PCV) 01/01/2000 Covid-19 Vaccine ( - 2023-2 5 season) 2024 08/03/2021, 07/06/2021 Influenza Vaccine (#1) 2025 Breast Cancer Screening-Mammogram 12/02/2025 12/02/2024 HPV Vaccines Aged Out No longer eligi ble based on patient's age to complete this topic Procedures Procedure Name Priority Date/Time Associated Diagnosis Comments SCREENING MAMMOGRAM BILATERAL W CHAPIN Schedule Routine, Read Routine (OP Routine) 12/02/2024 4:11 PM VP SCIENTIFIC Screening mammogram, encounter for from Last 3 Months or Most Recently Relevant to Health Maintenance Results * Screening Mammogram Bilateral W Chapin (12/02/2024 4:11 PM VP SCIENTIFIC) Anatomical Region Laterality Modality Breast Bilateral Mammography Impressions 12/05/2024 12:59 PM VP SCIENTIFIC BI-RADS ATLAS category (overall): 1 - Negative There is no mammographic evidence of malignancy. A 1 year screening mammogram is recommended. The patient has been or will be contacted. We recommend annual screening mammography for women at average risk of breast cancer beginning at age 40, based on guidelines of the [place] [employer] (ACR Practice Parameter for the Performance of Screening and Diagnostic Mammography) and [place] [employer]. For women with and elevated risk of breast cancer, please refer to the ACR Practice Parameter for specific screening recommendations. The patient will be entered into a reminder system with a target due date of 1 year for her next screening exam. Narrative 12/05/2024 12:59 PM VP SCIENTIFIC Screening Mammogram Bilateral W Chapin: 12/02/24 The [...] Most Recently Relevant to Health Maintenance Insurance [employer] [facility] Care Teams Transition Advisor Relationship Specialty Start Date End Date Jarad Perez MD [address] [place] [address] PCP - General Family Medicine 10/17/23 Tevin Richards MD [address] [place] [address] Consulting Physician Obstetrics and Gynecology 08/30/23 Senia Garcia MD [address] [place] [address] Surgeon Breast Surgery 08/30/23
[2025-05-07 21:38] LABS: Hematocrit 41.0 % (37.0-47.0); Hemoglobin 13.7 g/dL (12.0-15.0); Immature Granulocyte Percent A 0.7 % (0-0.5); Lymphocytes Absolute Auto 4.35 K/mm3 (0.9-3.2); Mean Corpuscular HGB Conc 33.4 g/dl (32-36); Mean Corpuscular Hemoglobin 31.1 pg (26-34); Mean Corpuscular Volume 93.0 fl (80-100); Nucleated Red Blood Cells Absolute Auto 0.000 K/mm3 (0.0-0.012); Nucleated Red Blood Cells Perc 0.0 % (0.0-0.2); Platelet Count Result 261 k/mm3 (150-375); Red Blood Count 4.41 M/mm3 (4.2-5.4); White Blood Count 10.3 K/mm3 (4.5-10.0)
[2025-05-07 21:49] LABS: INR 1.0; Prothrombin Time 12.9 Seconds (11.1-14.7)
[2025-05-07 21:50] LABS: Partial Thromboplastin Time 23.4 Seconds (22.3-36.8)
[2025-05-07 22:04] LABS: Alanine Aminotransferase 56 U/L (6-35); Albumin Level 4.4 g/dL (3.5-5.1); Alkaline Phosphatase 58 U/L (38-126); Anion Gap 11 mmol/L (4-12); Aspartate Amino Transferase 87 U/L (14-36); Bilirubin,Total 0.2 mg/dL (0.2-1.3); Blood Urea Nitrogen 14 mg/dL (7-17); Calcium 9.0 mg/dL (8.4-10.2); Carbon Dioxide 21 mmol/L (22-30); Chloride 108 mmol/L (98-107); Estimated Glomerular Filt Rate > 60; Glucose 108 mg/dL (65-110); Lipase 879 U/L (23-300); Potassium 3.4 mmol/L (3.4-5.0); Sodium 140 mmol/L (137-145); Total Protein 7.4 g/dL (6.3-8.2)
[2025-05-07 22:11] LABS: Troponin I < 0.012 ng/mL (0.000-0.034)
[2025-05-07 22:13] VITALS: BP 116/80; PULSE 92; RESP 18; TEMP 36.2; O2SAT 98
--- NOTE | 2025-05-07 22:21 | ED.CHESTPAIN ---
HPI - Chest Pain General Chief Complaint: Chest Pain <Fiona Chen PA-C - Last Filed: 05/08/25 02:12> Stated Complaint: CHEST AND BACK PAIN <Fiona Chen PA-C - Last Filed: 05/08/25 02:12> Time Seen by Provider: 05/07/25 22:22 <Fiona Chen PA-C - Last Filed: 05/08/25 02:12> Focused HPI: This is a 44 year old female that presents to the ER for chest pain/back pain. Ongoing over the last couple of hours. Reports it feels similar to when her gallbladder was acting up. Reports her stomach has been bothering her the last couple of weeks. Reports she had received a stressful phone call before the pain started. GENERAL: Well-appearing, well-nourished, and in no acute distress. HEAD: Normocephalic, atraumatic. CHEST: Clear to auscultation. ?No respiratory distress. HEART: Regular rate and rhythm.? NEURO: ?Alert and oriented x3. Patient screened in triage and initial orders placed.? ?Additional care and disposition to be based upon?diagnostic testing and treatment. <Fiona Chen PA-C - Last Filed: 05/08/25 02:12> Focused HPI: This is a 44 year old female that presents to the ER for chest pain/back pain. Ongoing over the last couple of hours. Reports it feels similar to when her gallbladder was acting up. Reports her stomach has been bothering her the last couple of weeks. Reports she had received a stressful phone call before the pain started. GENERAL: Well-appearing, well-nourished, and in no acute distress. HEAD: Normocephalic, atraumatic. CHEST: Clear to auscultation. ?No respiratory distress. HEART: Regular rate and rhythm.? NEURO: ?Alert and oriented x3. Patient screened in triage and initial orders placed.? ?Additional care and disposition to be based upon?diagnostic testing and treatment. Agree with triage assessment although patient denied any abdominal pain or discomfort for me at this time. States that the pain started shortly after she got off the phone and had a very stressful phone call. She also complains of history of severe anxiety. <Parmjit Ozuna MD - Last Filed: 05/08/25 01:24> Related Data Allergies/Adverse Reactions: Allergies Allergy/AdvReac Type Severity Reaction Status Date / Time No Known Allergies Allergy Mild Verified 05/07/25 22:16 <Fiona Chen PA-C - Last Filed: 05/08/25 02:12> Review of Systems Review of Systems: All systems are reviewed and are negative unless stated otherwise in the HPI. <Parmjit Ozuna MD - Last Filed: 05/08/25 01:24> PMFSH Past Medical History Medical History: Medical History Cyst of right breast Screening mammogram, encounter for COVID-19 Ganglion, left wrist Tobacco abuse ADD (attention deficit disorder) Alcohol abuse Left carpal tunnel syndrome <Fiona Chen PA-C - Last Filed: 05/08/25 02:12> Surgical History Surgical History: Surgical History History of tubal ligation (05/21/12) unilateral left tubal ligation History of right salpingo-oophorectomy (~2003) History of exploratory laparotomy (~2003) exploratory lap w/RSO by Harley--rt ovarian mass History of cholecystectomy (~2003) <Fiona Chen PA-C - Last Filed: 05/08/25 02:12> Family History Family History: Family History Father Neurological complaint Grandparent Family history of coronary artery disease Mother Breast cancer metastatic breast cancer which spread to skull/neck/hips/ribs Sibling Blood clot in vein COVID-19 Other Family history of arthritis Family history of malignant neoplasm <Fiona Chen PA-C - Last Filed: 05/08/25 02:12> Social History Social History: Social History Smoking packs per day: 0.5 Smoking cigarettes per day: 10.0 Smoking status: Current every day smoker (.5 ppd) Tobacco type: cigarettes Second hand tobacco smoke exposure: No Alcohol intake: current Drinks per week: 1 Substance use: never Substance use type: does not use Lack of Transportation: No Lack of Food: Never True Current Housing: I Have Housing Concerned About Future Housing: No Difficulty Paying Gas/Electric Bills: No Difficulty Paying for Meds: No Currently Unemployed: No Education: Bachelor's Degree Difficulty w/ Childcare or Family Care: No Living arrangements: other Additional living arrangements comments: Occupation/Education: occupation 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 HEENT: PERRL, no rhinorrhea, no post nasal drip, oropharynx clear. Neck: Trachea midline, no JVD, no lymphadenopathy. Cardiovascular: Regular rate and rhythm, no murmurs, rubs or gallops, no peripheral edema. Respiratory: Clear to auscultation bilaterally, no tachypnea, no wheezing, no rhonchi, no rubs, no respiratory distress. Abdomen: Soft, nontender, nondistended, no rebound, no guarding, no peritoneal signs. Musculoskeletal: No joint swelling or deformity, normal muscle tone. Skin: No rashes or petechia, no signs of infection. Psychiatric: Alert and oriented, normal behavior and judgment for situation. Neurological: Alert and oriented to person, place, and time. Follows all commands. No focal deficits, speech is clear and fluent. <Parmjit Ozuna MD - Last Filed: 05/08/25 01:24> Course Vital Signs Vital signs: Vital Signs Temperature 97.2 F L 05/07/25 22:13 Pulse Rate 92 05/07/25 22:13 Respiratory Rate 18 05/07/25 22:13 Blood Pressure 116/80 05/07/25 22:13 Pulse Oximetry 98 05/07/25 22:13 Oxygen Delivery Room Air 05/07/25 22:13 Temperature 97.6 F 05/08/25 01:26 Pulse Rate 89 05/08/25 01:26 Respiratory Rate 18 05/08/25 01:26 Blood Pressure 122/76 05/08/25 01:26 Pulse Oximetry 98 05/08/25 01:26 Oxygen Delivery Room Air 05/08/25 01:00 <Fiona Chen PA-C - Last Filed: 05/08/25 02:12> Vital Signs Temperature 97.2 F L 05/07/25 22:13 Pulse Rate 92 05/07/25 22:13 Respiratory Rate 18 05/07/25 22:13 Blood Pressure 116/80 05/07/25 22:13 Pulse Oximetry 98 05/07/25 22:13 Oxygen Delivery Room Air 05/07/25 22:13 Temperature 97.6 F 05/08/25 01:26 Pulse Rate 89 05/08/25 01:26 Respiratory Rate 18 05/08/25 01:26 Blood Pressure 122/76 05/08/25 01:26 Pulse Oximetry 98 05/08/25 01:26 Oxygen Delivery Room Air 05/08/25 01:00 <Parmjit Ozuna MD - Last Filed: 05/08/25 01:24> MDM - Chest Pain MDM Narrative Medical decision making narrative: The patient was evaluated by myself in the emergency department. History is obtained from patient who is an independent historian and physical exam was performed. External medical records were reviewed at this time. IV was established and pertinent tests were ordered. EKG was obtained which revealed sinus rhythm at a rate of 93 beats per minute, no evidence of acute ischemia. EKG was independently interpreted by me and is currently pending official cardiology read. Laboratory results obtained revealing elevated lipase of 879, transaminitis with an AST of 87 ALT 56. Patient was informed of these findings at bedside. Patient at this time did inform me that she has had her gallbladder taken out. Denies any abdominal pain, epigastric pain, nausea or vomiting. Did discuss with the patient obtaining a CT abdomen pelvis with IV contrast, however, given that the patient is asymptomatic, patient agrees that this is not indicated at this time. Imaging studies obtained included CXR which was independently interpreted by me revealing no acute cardiopulmonary process, which is pending final radiology interpretation. Differential diagnosis considerations include acute stress reaction, anxiety, acute coronary syndrome, acute viral illness, dehydration, electrolyte derangement, infectious process such as pneumonia. Comorbidities impacting this visit include history of anxiety. I have evaluated and discussed social determinants of health with the patient that could potentially impact subsequent diagnosis and treatment plans. On repeat assessment of the patient, reevaluation revealed that the patient is doing well and is in no acute distress. Patient symptoms have improved since she arrived to our emergency department, denies any active chest pain. Repeat vital signs were all reviewed and noted to be stable. Differential diagnosis and treatment plan were discussed with the patient at bedside. Patient agrees with discussion and after shared medical decision making agrees with discharge. All questions were answered to the patient's satisfaction. Patient will follow up with her PCP in 3-5 days. Patient was provided with strict return precautions and instructed to return to the emergency department if any new or worsening symptoms develop. The patient was discharged in stable condition. <Parmjit Ozuna MD - Last Filed: 05/08/25 01:24> Lab Data Result diagrams: 05/07/25 21:33 05/07/25 21:33 <Fiona Chen PA-C - Last Filed: 05/08/25 02:12> Labs: Lab Results 05/07/25 05/08/25 Range/Units 21:33 00:16 WBC 10.3 H (4.5-10.0) K/mm3 RBC 4.41 (4.2-5.4) M/mm3 Hgb 13.7 (12.0-15.0) g/dL Hct 41.0 (37.0-47.0) % MCV 93.0 (80-100) fl MCH 31.1 (26-34) pg MCHC 33.4 (32-36) g/dl RDW 12.9 (11.5-14.5) % Plt Count 261 (150-375) k/mm3 MPV 9.2 (7.4-10.4) fl Immature Gran % (Auto) 0.7 H (0-0.5) % Neut % (Auto) 48.8 (45.5-73.1) % Lymph % (Auto) 42.3 (18.3-44.2) % [place] % (Auto) 6.0 (2.6-8.5) % Eos % (Auto) 1.7 (0-4.4) % Baso % (Auto) 0.5 (0.2-1.2) % Lymph # (Auto) 4.35 H (0.9-3.2) K/mm3 [place] # (Auto) 0.6 (0.1-0.6) K/mm3 Eos # (Auto) 0.2 (0-0.3) K/mm3 Baso # (Auto) 0.1 (0.0-0.1) K/mm3 Abs Immat Gran (auto) 0.07 H (0.00-0.031) K/mm3 Absolute Neuts (auto) 5.0 (1.3-6.7) K/mm3 Absolute Nucleated RBC 0.000 (0.0-0.012) K/mm3 Nucleated RBC % 0.0 (0.0-0.2) % PT 12.9 (11.1-14.7) Seconds INR 1.0 APTT 23.4 (22.3-36.8) Seconds Sodium 140 (137-145) mmol/L Potassium 3.4 (3.4-5.0) mmol/L Chloride 108 H (98-107) mmol/L Carbon Dioxide 21 L (22-30) mmol/L Anion Gap 11 (4-12) mmol/L BUN 14 D (7-17) mg/dL Creatinine 0.84 (0.7-1.0) mg/dL Estim Creat Clear Calc Not Reportable Estimated GFR > 60 (59 - ) Glucose 108 (65-110) mg/dL Calcium 9.0 (8.4-10.2) mg/dL Total Bilirubin 0.2 (0.2-1.3) mg/dL AST 87 H (14-36) U/L ALT 56 H (6-35) U/L Alkaline Phosphatase 58 (38-126) U/L Troponin I < 0.012 < 0.012 (0.000-0.034) ng/mL Total Protein 7.4 (6.3-8.2) g/dL Albumin 4.4 (3.5-5.1) g/dL Lipase 879 H (23-300) U/L <Fiona Chen PA-C - Last Filed: 05/08/25 02:12> Lab Results 05/07/25 05/08/25 Range/Units 21:33 00:16 WBC 10.3 H (4.5-10.0) K/mm3 RBC 4.41 (4.2-5.4) M/mm3 Hgb 13.7 (12.0-15.0) g/dL Hct 41.0 (37.0-47.0) % MCV 93.0 (80-100) fl MCH 31.1 (26-34) pg MCHC 33.4 (32-36) g/dl RDW 12.9 (11.5-14.5) % Plt Count 261 (150-375) k/mm3 MPV 9.2 (7.4-10.4) fl Immature Gran % (Auto) 0.7 H (0-0.5) % Neut % (Auto) 48.8 (45.5-73.1) % Lymph % (Auto) 42.3 (18.3-44.2) % [place] % (Auto) 6.0 (2.6-8.5) % Eos % (Auto) 1.7 (0-4.4) % Baso % (Auto) 0.5 (0.2-1.2) % Lymph # (Auto) 4.35 H (0.9-3.2) K/mm3 [place] # (Auto) 0.6 (0.1-0.6) K/mm3 Eos # (Auto) 0.2 (0-0.3) K/mm3 Baso # (Auto) 0.1 (0.0-0.1) K/mm3 Abs Immat Gran (auto) 0.07 H (0.00-0.031) K/mm3 Absolute Neuts (auto) 5.0 (1.3-6.7) K/mm3 Absolute Nucleated RBC 0.000 (0.0-0.012) K/mm3 Nucleated RBC % 0.0 (0.0-0.2) % PT 12.9 (11.1-14.7) Seconds INR 1.0 APTT 23.4 (22.3-36.8) Seconds Sodium 140 (137-145) mmol/L Potassium 3.4 (3.4-5.0) mmol/L Chloride 108 H (98-107) mmol/L Carbon Dioxide 21 L (22-30) mmol/L Anion Gap 11 (4-12) mmol/L BUN 14 D (7-17) mg/dL Creatinine 0.84 (0.7-1.0) mg/dL Estim Creat Clear Calc Not Reportable Estimated GFR > 60 (59 - ) Glucose 108 (65-110) mg/dL Calcium 9.0 (8.4-10.2) mg/dL Total Bilirubin 0.2 (0.2-1.3) mg/dL AST 87 H (14-36) U/L ALT 56 H (6-35) U/L Alkaline Phosphatase 58 (38-126) U/L Troponin I < 0.012 < 0.012 (0.000-0.034) ng/mL Total Protein 7.4 (6.3-8.2) g/dL Albumin 4.4 (3.5-5.1) g/dL Lipase 879 H (23-300) U/L <Parmjit Ozuna MD - Last Filed: 05/08/25 01:24> Discharge Plan Discharge Clinical Impression: Transaminitis Chest pain Qualifiers: Chest pain type: unspecified Qualified Code(s): R07.9 - Chest pain, unspecified <Fiona Chen PA-C - Last Filed: 05/08/25 02:12> Patient Disposition: Home <Fiona Chen PA-C - Last Filed: 05/08/25 02:12> Condition: Improved <Fiona Chen PA-C - Last Filed: 05/08/25 02:12> Instructions: Antibiotic Form, Chest Pain (ED) <Fiona Chen PA-C - Last Filed: 05/08/25 02:12> Additional Instructions: Please follow-up with your family doctor within the next 3-5 days. Return to emergency room if any new or worsening symptoms develop. <Fiona Chen PA-C - Last Filed: 05/08/25 02:12> Patient Language: Guyanese <Fiona Chen PA-C - Last Filed: 05/08/25 02:12> Prescriptions: No Action estradiol-norethindrone acet [Activella] 1-0.5 mg tablet 1 tablet PO DAILY Qty: 28 0RF <Fiona Chen PA-C - Last Filed: 05/08/25 02:12> Follow-up/Referrals: Jarad Perez MD [Primary Care Provider] - 3 Days <Fiona Chen PA-C - Last Filed: 05/08/25 02:12> Time of Disposition: 00:50 <Fiona Chen PA-C - Last Filed: 05/08/25 02:12> 00:50 <Parmjit Ozuna MD - Last Filed: 05/08/25 01:24>
--- OUTSIDE RECORDS SUMMARY | 2025-05-08 00:27 | XMS_ITS | Clinical Summary ---
Author Organization [facility] Address [address] [place] [id number] Care Team Providers Care Senior Estimator Name Role Phone Tevin Richards MD Unavailable [phone] Fort LawnSenia allen MD Unavailable [phone] Jarad Perez MD Primary Care Provider [phone] Allergies No known active allergies Medications No [...] on file Legal Sex Female 7:59 AM DUST COLLECTOR Gender Identity Not on file Sexual Orientation [...] CDT Respiratory Rate 18 10/17/2023 1:01 PM DUST COLLECTOR Oxygen Saturation 99% 05/26/2024 12:10 PM CDT [...] Read Routine (OP Routine) 12/02/2024 4:11 PM DUST COLLECTOR Screening mammogram, encounter for from Last 3 Months or Most Recently Relevant to Health Maintenance Results * Screening Mammogram Bilateral W Chapin (12/02/2024 4:11 PM DUST COLLECTOR) Anatomical Region Laterality Modality Breast Bilateral Mammography Impressions 12/05/2024 12:59 PM DUST COLLECTOR BI-RADS ATLAS category (overall): 1 - Negative There is no mammographic evidence of malignancy. A 1 year screening mammogram is recommended. The patient has been or will be contacted. We recommend annual screening mammography for women at average risk of breast cancer beginning at age 40, based on guidelines of the [employer] (ACR Practice Parameter for the Performance of Screening and Diagnostic Mammography) and [employer]. For women with and elevated risk of breast cancer, please refer to the ACR Practice Parameter for specific screening recommendations. The patient will be entered into a reminder system with a target due date of 1 year for her next screening exam. Narrative 12/05/2024 12:59 PM DUST COLLECTOR Screening Mammogram Bilateral W Chapin: 12/02/24 The [...] Recently Relevant to Health Maintenance Insurance IDPA [facility] Care Teams Senior Estimator Relationship Specialty Start Date End Date Jarad Perez MD [address] [place] [address] PCP - General Family Medicine 10/17/23 Tevin Richards MD [address] [place] [address] Consulting Physician Obstetrics and Gynecology 08/30/23 Senia Garcia MD [address] [place] [address] Surgeon Breast Surgery 08/30/23
--- OUTSIDE RECORDS SUMMARY | 2025-05-08 00:27 | XMS_ITS | Referral Summary ---
Author Organization [facility] Address [address] [place] [id number] Care Team Providers Care Maitre D' Name Role Phone Tevin Richards MD Unavailable [phone] Senia Garcia MD Unavailable [phone] Jarad Perez MD Primary Care Provider [phone] Allergies No known active allergies Medications No [...] on file Legal Sex Female 7:59 AM JACK FRAME TENDER Gender Identity Not on file Sexual Orientation Not on file Last Filed Vital Signs Vital Sign Reading Time Taken Comments Blood Pressure 146/84 05/26/2024 12:10 PM CDT Pulse 72 05/26/2024 12:10 PM CDT Temperature 37.1 C (98.7 F) 05/26/2024 12:10 PM CDT Respiratory Rate 18 10/17/2023 1:01 PM JACK FRAME TENDER Oxygen Saturation 99% 05/26/2024 12:10 PM CDT [...] Read Routine (OP Routine) 12/02/2024 4:11 PM JACK FRAME TENDER Screening mammogram, encounter for from Last 3 Months or Most Recently Relevant to Health Maintenance Results * Screening Mammogram Bilateral W Chapin (12/02/2024 4:11 PM JACK FRAME TENDER) Anatomical Region Laterality Modality Breast Bilateral Mammography Impressions 12/05/2024 12:59 PM JACK FRAME TENDER BI-RADS ATLAS category (overall): 1 - Negative There is no mammographic evidence of malignancy. A 1 year screening mammogram is recommended. The patient has been or will be contacted. We recommend annual screening mammography for women at average risk of breast cancer beginning at age 40, based on guidelines of the [employer] (ACR Practice Parameter for the Performance of Screening and Diagnostic Mammography) and [employer]. For women with and elevated risk of breast cancer, please refer to the ACR Practice Parameter for specific screening recommendations. The patient will be entered into a reminder system with a target due date of 1 year for her next screening exam. Narrative 12/05/2024 12:59 PM JACK FRAME TENDER Screening Mammogram Bilateral W Chapin: 12/02/24 The [...] Most Recently Relevant to Health Maintenance Insurance [facility] Care Teams Maitre D' Relationship Specialty Start Date End Date Jarad Perez MD [address] [place] [address] PCP - General Family Medicine 10/17/23 Tevin Richards MD [address] [place] [address] Consulting Physician Obstetrics and Gynecology 08/30/23 JoseSenia allen MD [address] [place] [address] Surgeon Breast Surgery 08/30/23
[2025-05-08 00:46] LABS: Troponin I < 0.012 ng/mL (0.000-0.034)
[2025-05-08 01:00] VITALS: BP 122/76; PULSE 88; PULSE 89; RESP 16; TEMP 36.4; O2SAT 97; O2SAT 98
[2025-05-08 01:26] VITALS: BP 122/76; PULSE 89; RESP 18; TEMP 36.4; O2SAT 98
== END 2025-05-08 01:22 | disposition home or self-care (01) ==
PROVIDERS: Emergency Medicine; Emergency Provider Emergency Medicine; PCP Family Medicine
DX: R07.9 Chest pain, unspecified (principal); F17.210 Nicotine dependence, cigarettes, uncomplicated; Z86.16 Personal history of COVID-19; R74.01 Elevation of levels of liver transaminase levels; R94.31 Abnormal electrocardiogram [ECG] [EKG]
CPT/HCPCS: 36415; 71046; 80053; 83690; 84484; 85025; 85610; 85730; 93005; 99284

== ENCOUNTER 2025-05-13 14:32 | Outpatient (CLI) | payer OTHER, SELFPAY ==
--- NOTE | ~2025-05-13 | CT_ITS ---
EXAMINATION: CT abdomen pelvis wo con DATE: 05/13/2025 14:58 INDICATION: R10.9 - Unspecified abdominal pain TECHNIQUE: Computed tomography (CT) of the abdomen and pelvis was performed without intravenous contr ast. Automated exposure control and iterative reconstruction technique were employed. The dose-length product was 1319.73 mGy-cm. COMPARISON: 02/19/2020. FINDINGS: Lower thorax: Right lower lobe granuloma. Minimal dependent atelectasis. Liver: Mildly enlarged. Biliary/Gallbladder: Gallbladder is absent. No bile duct dilation. Pancreas: No mass or duct dilation. Small, 4 mm lipoma versus fatty inclusion. Spleen: Normal. Adrenals:No mass. Kidneys: No suspicious mass, obstructing stone, or hydronephrosis. Exophytic 1.0 cm proteinaceous rig ht midpole cyst. GI tract: No small or large bowel dilation. Normal appendix. Mesentery/Peritoneum: No ascites, mass, or free air. Retroperitoneum: No mass. Mild atherosclerotic calcifications of intra-abdominal arterial vessels. Pelvis: Normal urinary bladder and uterus. Normal left ovary. Right ovary surgically absent. Steriliz ation clip on the left. Soft Tissues: Soft tissues and body wall unremarkable. Small uncomplicated fat-containing umbilical h ernia. Bones: No acute osseous finding. IMPRESSION: No acute abdominopelvic process detected. Mild hepatomegaly. Results reported telephonically to Liseth Gallardo APRN by Dr. Stokes at 3:20 PM on 05/13/2025. Reviewed, dictated and finalized at location K. IMPRESSION: No acute abdominopelvic process detected. Mild hepatomegaly. Results reported telephonically to Liseth Gallardo APRN by Dr. Stokes at 3:20 P M on 05/13/2025.
--- OUTSIDE RECORDS SUMMARY | 2025-05-13 14:35 | XMS_ITS | Referral Summary ---
Author Organization [facility] Address [address] [place] [id number] Care Team Providers Care Bottom Filler Name Role Phone Tevin Richards MD Unavailable [phone] Senia Garcia MD Unavailable [phone] Jarad Perez MD Primary Care Provider [phone] Allergies No known active allergies Medications No [...] on file Legal Sex Female 7:59 AM CHOCOLATE MAKER Gender Identity Not on file Sexual Orientation Not on file Last Filed Vital Signs Vital Sign Reading Time Taken Comments Blood Pressure 146/84 05/26/2024 12:10 PM CDT Pulse 72 05/26/2024 12:10 PM CDT Temperature 37.1 C (98.7 F) 05/26/2024 12:10 PM CDT Respiratory Rate 18 10/17/2023 1:01 PM CHOCOLATE MAKER Oxygen Saturation 99% 05/26/2024 12:10 PM CDT [...] Read Routine (OP Routine) 12/02/2024 4:11 PM CHOCOLATE MAKER Screening mammogram, encounter for from Last 3 Months or Most Recently Relevant to Health Maintenance Results * Screening Mammogram Bilateral W Chapin (12/02/2024 4:11 PM CHOCOLATE MAKER) Anatomical Region Laterality Modality Breast Bilateral Mammography Impressions 12/05/2024 12:59 PM CHOCOLATE MAKER BI-RADS ATLAS category (overall): 1 - Negative There is no mammographic evidence of malignancy. A 1 year screening mammogram is recommended. The patient has been or will be contacted. We recommend annual screening mammography for women at average risk of breast cancer beginning at age 40, based on guidelines of the [employer] [employer] (ACR Practice Parameter for the Performance of Screening and Diagnostic Mammography) and [employer]. For women with and elevated risk of breast cancer, please refer to the ACR Practice Parameter for specific screening recommendations. The patient will be entered into a reminder system with a target due date of 1 year for her next screening exam. Narrative 12/05/2024 12:59 PM CHOCOLATE MAKER Screening Mammogram Bilateral W Chapin: 12/02/24 The [...] Most Recently Relevant to Health Maintenance Insurance [facility] Care Teams Bottom Filler Relationship Specialty Start Date End Date Jarad Perez MD [address] [place] [address] PCP - General Family Medicine 10/17/23 Tevin Richards MD [address] [place] [address] Consulting Physician Obstetrics and Gynecology 08/30/23 JoseSenia allen MD [address] [place] [address] Surgeon Breast Surgery 08/30/23
--- OUTSIDE RECORDS SUMMARY | 2025-05-13 14:35 | XMS_ITS | Clinical Summary ---
Author Organization [facility] Address [address] [place] [phone] Care Team Providers Care Outpatient Dietitian Name Role Phone Tevin Richards MD Unavailable [phone] CusterSenia allen MD Unavailable Jarad Perez MD Primary Care Provider [phone] Allergies No known active allergies Medications No [...] on file Legal Sex Female 7:59 AM ROLLER MAKER Gender Identity Not on file Sexual [...] CDT Respiratory Rate 18 10/17/2023 1:01 PM ROLLER MAKER Oxygen Saturation 99% 05/26/2024 12:10 PM [...] Read Routine (OP Routine) 12/02/2024 4:11 PM ROLLER MAKER Screening mammogram, encounter for from Last 3 Months or Most Recently Relevant to Health Maintenance Results * Screening Mammogram Bilateral W Chapin (12/02/2024 4:11 PM ROLLER MAKER) Anatomical Region Laterality Modality Breast Bilateral Mammography Impressions 12/05/2024 12:59 PM ROLLER MAKER BI-RADS ATLAS category (overall): 1 - Negative There is no mammographic evidence of malignancy. A 1 year screening mammogram is recommended. The patient has been or will be contacted. We recommend annual screening mammography for women at average risk of breast cancer beginning at age 40, based on guidelines of the [employer] (ACR Practice Parameter for the Performance of Screening and Diagnostic Mammography) and [employer]. For women with and elevated risk of breast cancer, please refer to the ACR Practice Parameter for specific screening recommendations. The patient will be entered into a reminder system with a target due date of 1 year for her next screening exam. Narrative 12/05/2024 12:59 PM ROLLER MAKER Screening Mammogram Bilateral W Chapin: 12/02/24 [...] Recently Relevant to Health Maintenance Insurance IDPA [facility] Care Teams Outpatient Dietitian Relationship Specialty Start Date End Date Jarad Perez MD [address] [place] [address] PCP - General Family Medicine 10/17/23 Tevin Richards MD [address] [place] [address] Consulting Physician Obstetrics and Gynecology 08/30/23 Senia Garcia MD [address] [place] [address] Surgeon Breast Surgery 08/30/23
[2025-05-13 15:12] LABS: Hematocrit 44.9 % (37.0-47.0); Hemoglobin 14.7 g/dL (12.0-15.0); Immature Granulocyte Percent A 0.5 % (0-0.5); Lymphocytes Absolute Auto 3.39 K/mm3 (0.9-3.2); Mean Corpuscular HGB Conc 32.7 g/dl (32-36); Mean Corpuscular Hemoglobin 31.1 pg (26-34); Mean Corpuscular Volume 95.1 fl (80-100); Nucleated Red Blood Cells Absolute Auto 0.000 K/mm3 (0.0-0.012); Nucleated Red Blood Cells Perc 0.0 % (0.0-0.2); Platelet Count Result 303 k/mm3 (150-375); Red Blood Count 4.72 M/mm3 (4.2-5.4); White Blood Count 10.0 K/mm3 (4.5-10.0)
[2025-05-13 16:07] LABS: Alanine Aminotransferase 61 U/L (6-35); Albumin Level 4.5 g/dL (3.5-5.1); Alkaline Phosphatase 64 U/L (38-126); Amylase 50 U/L (30-110); Anion Gap 10 mmol/L (4-12); Aspartate Amino Transferase 44 U/L (14-36); Bilirubin,Total 0.6 mg/dL (0.2-1.3); Blood Urea Nitrogen 13 mg/dL (7-17); Calcium 9.6 mg/dL (8.4-10.2); Carbon Dioxide 25 mmol/L (22-30); Chloride 105 mmol/L (98-107); Cholesterol 142 mg/dL (0-200); Estimated Glomerular Filt Rate > 60; Glucose 87 mg/dL (65-110); HDL Direct 44 mg/dL; Lipase 39 U/L (23-300); Potassium 3.5 mmol/L (3.4-5.0); Sodium 140 mmol/L (137-145); Total Protein 7.7 g/dL (6.3-8.2); Triglycerides 122 mg/dL (<150)
[2025-05-13 16:35] LABS: Iron 78 ug/dL (37-170)
[2025-05-13 16:42] LABS: Thyroid Stimulating Hormone 0.760 uIU/mL (0.465-4.680)
[2025-05-13 16:46] LABS: Percent Iron Saturation 19 % (20-50)
[2025-05-13 17:17] LABS: Vitamin B12 381.0 pg/mL (239-931)
== END 2025-05-13 14:33 | disposition home or self-care (01) ==
LOC: ANHIMG 14:32
PROVIDERS: PCP Family Medicine; Visit Provider Nurse Practitioner Adult Health
DX: Z13.220 Encounter for screening for lipoid disorders (principal); Z13.29 Encounter for screening for other suspected endocrine disorder; R16.0 Hepatomegaly, not elsewhere classified; R74.8 Abnormal levels of other serum enzymes; R74.01 Elevation of levels of liver transaminase levels; R00.2 Palpitations; R07.9 Chest pain, unspecified; K21.9 Gastro-esophageal reflux disease without esophagitis; N95.1 Menopausal and female climacteric states; R53.83 Other fatigue
CPT/HCPCS: 36415; 74176; 80053; 80061; 82150; 82306; 82607; 82746; 83540; 83550; 83690; 84443; 85025

== ENCOUNTER 2025-08-07 15:16 | Outpatient (CLI) | payer OTHER, SELFPAY ==
[2025-08-07 15:46] LABS: Hematocrit 40.9 % (37.0-47.0); Hemoglobin 13.2 g/dL (12.0-15.0); Immature Granulocyte Percent A 0.6 % (0-0.5); Lymphocytes Absolute Auto 3.83 K/mm3 (0.9-3.2); Mean Corpuscular HGB Conc 32.3 g/dl (32-36); Mean Corpuscular Hemoglobin 30.6 pg (26-34); Mean Corpuscular Volume 94.9 fl (80-100); Nucleated Red Blood Cells Absolute Auto 0.000 K/mm3 (0.0-0.012); Nucleated Red Blood Cells Perc 0.0 % (0.0-0.2); Platelet Count Result 302 k/mm3 (150-375); Red Blood Count 4.31 M/mm3 (4.2-5.4); White Blood Count 10.9 K/mm3 (4.5-10.0)
[2025-08-07 16:07] LABS: Alanine Aminotransferase 23 U/L (6-35); Albumin Level 4.2 g/dL (3.5-5.1); Alkaline Phosphatase 58 U/L (38-126); Amylase 60 U/L (30-110); Anion Gap 5 mmol/L (4-12); Aspartate Amino Transferase 22 U/L (14-36); Bilirubin,Total 0.1 mg/dL (0.2-1.3); Blood Urea Nitrogen 17 mg/dL (7-17); Calcium 9.2 mg/dL (8.4-10.2); Carbon Dioxide 26 mmol/L (22-30); Chloride 105 mmol/L (98-107); Estimated Glomerular Filt Rate > 60; Glucose 99 mg/dL (65-110); Lipase 88 U/L (23-300); Potassium 3.9 mmol/L (3.4-5.0); Sodium 136 mmol/L (137-145); Total Protein 7.1 g/dL (6.3-8.2)
[2025-08-08 07:09] LABS: GGT 21 IU/L (0-60)
== END 2025-08-07 15:17 | disposition home or self-care (01) ==
PROVIDERS: PCP Family Medicine; Visit Provider Nurse Practitioner Adult Health
DX: R74.8 Abnormal levels of other serum enzymes (principal)
CPT/HCPCS: 36415; 80053; 82150; 82248; 82977; 83690; 85025